=== PATIENT | male | born 1990 | race Caucasian/White ===

== ENCOUNTER 2016-12-14 17:48 | Emergency (ER) | payer BC ==
[2016-12-14 20:58] LABS: Urine Bacteria Absent (Absent); Urine Bilirubin Negative (Negative); Urine Glucose Negative (Negative); Urine Nitrite Negative (Negative)
--- NOTE | 2016-12-14 21:35 | ED ---
Complaint/Male - History of Current Complaint Chief Complaint: EDUrogenitalProblems Time Seen by Provider: 12/14/16 19:57 Hx Obtained From: Patient Onset/Duration: Gradual Onset Timing: Constant Severity Initially: Moderate Severity Currently: None Location: Suprapubic Character: Sharp Aggravating Factor(s): Voiding, Straining Alleviating Factor(s): Nothing Associated Signs And Symptoms: Back Pain - Risk Factors Testicular Torsion: Negative - Allergies/Home Medications Allergies/Adverse Reactions: Allergies Allergy/AdvReac Type Severity Reaction Status Date / Time No Known Allergies Allergy Verified 10/29/13 15:21 PMH/Surg Hx/FS Hx/Imm Hx Previously Healthy: Yes Musculoskeletal History: Denies: Hx Rheumatoid Arthritis, Hx Osteoporosis - Immunization History Hx Pertussis Vaccination: No Immunizations Up to Date: Yes Infectious Disease History: No Infectious Disease History: Denies: Traveled Outside the in Last 30 Days - Social History Occupation: Employed Full-time Lives: With Family Alcohol Use: Occasionally Hx Substance Use: No Substance Use Type: Reports: None Hx Tobacco Use: No Smoking Status (MU): Never Smoked Tobacco Do You Chew or Dip Tobacco: No Review Of Systems Constitutional: Positive: Negative Skin: Positive: Negative ENT: Positive: Negative Cardiovascular: Positive: Negative Gastrointestinal: Positive: Negative Musculoskeletal: Positive: Negative Neurological: Positive: Negative All Other Systems Reviewed And Are Negative: Yes Physical Exam Triage Information Reviewed: Yes Vital Signs On Initial Exam: Initial Vitals Temp Pulse Resp BP Pulse Ox 99.4 F 83 20 161/85 100 12/14/16 17:50 12/14/16 17:50 12/14/16 17:50 12/14/16 17:50 12/14/16 17:50 Vital Signs Reviewed: Yes Appearance: Positive: Well-Appearing, Well-Nourished Skin: Positive: Warm, Skin Color Reflects Adequate Perfusion Eyes: Positive: EOMI, DIMITRY, Conjunctiva Clear Neck: Positive: Supple, No Lymphadenopathy Respiratory/Lung Sounds: Positive: Clear to Auscultation, Breath Sounds Present Cardiovascular: Positive: Normal, RRR, Pulses are Symmetrical in both Upper and Lower Extremities Musculoskeletal: Positive: Normal, Strength/ROM Intact Neurological: Positive: Sensory/Motor Intact, Alert, Oriented to Person Place, Time, Speech Normal Psychiatric: Positive: Normal AVPU Assessment: Alert Diagnostics - Vital Signs Vital Signs Temp Pulse Resp BP Pulse Ox 12/14/16 19:19 99.1 F 94 15 170/78 100 12/14/16 17:54 97.9 F 96 16 161/85 100 12/14/16 17:50 99.4 F 83 20 161/85 100 - Laboratory Lab Results: Lab Results 12/14/16 Range/Units 20:25 Urine Color Yellow Urine Appearance Clear Urine pH 6.0 (5-9) Ur Specific [place] 1.014 (1.010-1.030) Urine Protein Negative (Negative) Urine Ketones Negative (Negative) Urine Blood 1+ H (Negative) Urine Nitrate Negative (Negative) Urine Bilirubin Negative (Negative) Urine Urobilinogen Negative (Negative) Ur Leukocyte Esterase Trace H (Negative) Urine WBC (Auto) Absent (Absent) Urine RBC (Auto) Trace(0-2/hpf) (Absent) Urine Bacteria Absent (Absent) Urine Glucose Negative (Negative) Lab Statement: Any lab studies that have been ordered have been reviewed, and results considered in the medical decision making process. Complaint Male Course/Dx - Course Course Of Treatment: He states he had pain on Wednesday at 10/10 with what seemed to be a blockage of urine, after severe pain, he felt a flowing stream and did not have any more pain. He also endorses flank pain on the right side. He denies previous hx of kidney stones. His mother states he drinks a lot of milk. Provider explained to patient and mother risks and benefits of CT scan as well as kidney stone pain. Also, what medications will help and why he may need an intervention at some point (stone size, location). It was explained that without pain currently, its likely he passed a stone but that imaging may not show us anything and he is to return if pain returns. He agrees and is OK for discharge. If symptoms persist or blockage of urine happens again, flomax was given as a prescription. - Differential Dx/Diagnosis Differential Diagnosis/HQI/PQRI: Pyelonephritis, Testicular Torsion, Ureteral Calculi Provider Diagnoses: kidney stone
[2016-12-14 22:00] VITALS: BP 133/75
== END 2016-12-14 21:59 | disposition home or self-care (01) ==
LOC: ED 17:48
DX: N20.0 Calculus of kidney (principal); M54.9 Dorsalgia, unspecified
CPT/HCPCS: 81003; 81015; 87086; 99282

== ENCOUNTER 2018-08-01 21:13 | Emergency (ER) | payer BC ==
--- NOTE | 2018-08-01 22:09 | ED ---
GI/ HPI - HPI Summary HPI Summary: Patient complains of decreased urinary flow, bilateral lower abdominal pressure , nausea, mild hematuria, starting 8 AM this morning. States history of same one time before with unconfirmed diagnosis of kidney stones. Patient states since prior episode 12/2016, flow has never been completely restored. Denies fever, cough, sore throat, CP, SOB, V/D, change in BM, penile discharge, testicular pain. Medical history is none. Abdominal surgical history is none. Sexually active. 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 Onset/Duration: Started Hours Ago Timing: Constant Severity: Moderate Current Severity: Moderate Pain Intensity: 8 Location of Pain: RLQ, LLQ, Suprapubic Pain Characteristics: Dull, Pressure Associated Signs and Symptoms: Positive: Nausea, Dysuria, Abdominal Pain - Allergy/Home Medications Allergies/Adverse Reactions: Allergies Allergy/AdvReac Type Severity Reaction Status Date / Time No Known Allergies Allergy Verified 08/01/18 21:27 PMH/Surg Hx/FS Hx/Imm Hx Endocrine/Hematology History: Denies: Hx Anticoagulant Therapy Cardiovascular History: Denies: Hx Cardiac Arrest History: Denies: Hx Dialysis Musculoskeletal History: Denies: Hx Rheumatoid Arthritis, Hx Osteoporosis EENT History: Denies: Hx Deafness Neurological History: Denies: Hx CVA Psychiatric History: Denies: Hx Autism Infectious Disease History: No Infectious Disease History: Denies: Traveled Outside the [place] in Last 30 Days - Family History Known Family History: Positive: Unknown - Social History Alcohol Use: Occasionally Hx Substance Use: No Substance Use Type: Reports: None Hx Tobacco Use: No Smoking Status (MU): Never Smoked Tobacco Review of Systems Constitutional: Negative Eyes: Negative ENT: Negative Cardiovascular: Negative Respiratory: Negative Positive: Abdominal Pain, Nausea Positive: dysuria, hematuria, pain Musculoskeletal: Negative Skin: Negative Neurological: Negative Psychological: Normal All Other Systems Reviewed And Are Negative: Yes Physical Exam - Summary Physical Exam Summary: Patient has feeling of pressure with palpation of lower abdomen bilaterally and suprapubically. Abdominal exam otherwise unremarkable. No CVA tenderness bilaterally. Triage Information Reviewed: Yes Vital Signs On Initial Exam: Initial Vitals Temp Pulse Resp BP Pulse Ox 98.7 F 86 16 156/99 99 08/01/18 21:20 08/01/18 21:20 08/01/18 21:20 08/01/18 21:20 08/01/18 21:20 Vital Signs Reviewed: Yes Appearance: Positive: Well-Appearing Skin: Positive: Warm Head/Face: Positive: Normal Head/Face Inspection Eyes: Positive: Normal Neck: Positive: Supple Respiratory/Lung Sounds: Positive: Clear to Auscultation Cardiovascular: Positive: Normal Abdomen Description: Positive: Nontender Musculoskeletal: Positive: Normal Neurological: Positive: Normal Psychiatric: Positive: Normal AVPU Assessment: Alert - Alvin Coma Scale Best Eye Response: 4 - Spontaneous Best Motor Response: 6 - Obeys Commands Best Verbal Response: 5 - Oriented Coma Scale Total: 15 Diagnostics - Vital Signs Vital Signs Temp Pulse Resp BP Pulse Ox 08/01/18 21:20 98.7 F 86 16 156/99 99 - Laboratory Result Diagrams: 08/01/18 22:49 Lab Statement: Any lab studies that have been ordered have been reviewed, and results considered in the medical decision making process. GIGU Course/Dx - Course Course Of Treatment: Patient complains of decreased urinary flow, bilateral lower abdominal pressure, nausea, mild hematuria, starting 8 AM this morning. States history of same one time before with unconfirmed diagnosis of kidney stones. Patient states since prior episode 12/2016, flow has never been completely restored. Denies fever, cough, sore throat, CP, SOB, V/D, change in BM, penile discharge, testicular pain. Medical history is none. Abdominal surgical history is none. Sexually active. Physical exam:Patient has feeling of pressure with palpation of lower abdomen bilaterally and suprapubically. Abdominal exam otherwise unremarkable. No CVA tenderness bilaterally. Vital signs within normal limits. Labs unremarkable. CT abdomen and pelvis without contrast negative for acute process. Patient went to the bathroom and urinated on his own, and states he feels completely better and back to baseline. Bladder scan postvoid shows no remaining urine in bladder. UA positive for UTI. - Diagnoses Provider Diagnoses: UTI (urinary tract infection) Discharge - Sign-Out/Discharge Documenting (check all that apply): Patient Departure - Discharge Plan Condition: Stable Disposition: HOME Patient Education Materials: Urinary Tract Infection in Men (ED) Referrals: No Primary Care Phys,NOPCP [Primary Care Provider] - Serge Mirza MD [Medical Doctor] - Additional Instructions: Take antibiotics as directed. Return to the ED for any new or worsening symptoms - Billing Disposition and Condition Condition: STABLE Disposition: Home
[2018-08-01 22:59] LABS: ABS Basophils 0 10^3/ul (0-0.2); ABS Eosinophils 0.1 10^3/ul (0-0.6); ABS Lymphocytes 2.3 10^3/ul (1.0-4.8); ABS Monocytes 0.5 10^3/ul (0-0.8); ABS Neutrophils 4.2 10^3/ul (1.5-7.7); ABS Nucleated RBC 0 10^3/ul; Hematocrit 43 % (42-52); Hemoglobin 14.9 g/dl (14.0-18.0); Lymphocyte % 31.9 %; Mean Corpuscular HGB Conc 35 g/dl (31-36); Mean Corpuscular Hemoglobin 30 pg (27-31); Mean Corpuscular Volume 85 fL (80-94); Mean Platelet Volume 8.1 fL (7.4-10.4); Nucleated Red Blood Cells % 0; Platelet Count 268 10^3/ul (150-450); Red Blood Count 5.03 10^6/ul (4.00-5.40); Red Cell Distribution Width 13 % (10.5-15); White Blood Count 7.1 10^3/ul (3.5-10.8)
[2018-08-01 23:13] LABS: Urine Appearance Cloudy; Urine Bacteria Absent (Absent); Urine Bilirubin Negative (Negative); Urine Blood 2+ (Negative); Urine Color Yellow; Urine Glucose Negative (Negative); Urine Ketones Negative (Negative); Urine Nitrite Negative (Negative); Urine Protein 1+(30 mg/dL) (Negative); Urine Red Blood Cell 3+(>10/hpf) (Absent); Urine Specific Gravity 1.031 (1.010-1.030); Urine Urobilinogen Negative (Negative); Urine White Blood Cell 3+(>20/hpf) (Absent)
[2018-08-01] MEDS ORDERED: Sulfamethox/Trimethoprim DS 800/160* TAB PO ONE ×2 (23:15→23:21)
[2018-08-01 23:18] LABS: ALT 25 U/L (7-52); AST 19 U/L (13-39); Albumin 4.4 g/dL (3.2-5.2); Albumin/Globulin Ratio 1.8 (1-3); Alkaline Phosphatase 87 U/L (34-104); Anion Gap 6 mmol/L (2-11); BUN/Creatinine Ratio 19.1 (8-20); Blood Urea Nitrogen 18 mg/dL (6-24); C Reactive Protein < 1.00 mg/L (<8.01); CO2 Carbon Dioxide 27 mmol/L (22-32); Calcium 9.2 mg/dL (8.6-10.3); Chloride 104 mmol/L (101-111); EGFR Non-African American 96.3 (>60); Globulin 2.5 g/dL (2-4); Glucose 96 mg/dL (70-100); Potassium 3.8 mmol/L (3.5-5.0); Sodium 137 mmol/L (135-145); Total Protein 6.9 g/dL (6.4-8.9)
[2018-08-01] MEDS ORDERED: Sulfamethox/Trimethoprim DS 800/160* TAB ONE (23:24)
[2018-08-01 23:27] VITALS: BP 135/65
== END 2018-08-01 23:26 | disposition home or self-care (01) ==
LOC: ED 21:13
DX: N39.0 Urinary tract infection, site not specified (principal); R31.9 Hematuria, unspecified; R11.0 Nausea
CPT/HCPCS: 36415; 74176; 80053; 81003; 81015; 83605; 83690; 85025; 86140; 87086; 99282; A9270-GY

== ENCOUNTER 2018-08-26 09:40 | Day surgery (SDC) | payer BC ==
--- NOTE | 2018-08-25 14:07 | HP ---
CC: Dr. Arturo Barrios HISTORY AND PHYSICAL: DATE OF PLANNED ADMISSION AND SURGERY: 08/26/18 HISTORY OF PRESENT ILLNESS: Mr. Mkceon is a 28-year-old white male, who is admitted with recurrent urinary tract infections, bladder outlet obstruction and tight urethral meatal stenosis for meatotomy and cystoscopy. For the last year, Gadiel had noted slow stream, hesitancy and spraying of his urinary stream. He also has been having episodes of urgency, frequency and burning on urination. He was diagnosed as having urinary tract infections and prostatitis and 6 months ago was treated with a course of antibiotics. He went to the emergency room on 08/01/18 complaining of recurrent bladder symptoms. He had a noncontrast CT of the abdomen and pelvis, which was normal. At that time, his urine culture was negative. He was treated as a case of prostatitis. He had recurrent symptoms and was seen by Dr. Barrios 1 week ago. He had a work- up with blood work, and his CBC, chemistry profile, and urinalysis were all normal. He again was thought to have prostatitis and was placed on a course of Bactrim, which the patient is still taking. The patient presented to my office for evaluation. He has been having nocturia 4 times, day frequency every hour. He reports having slow stream and feels incomplete bladder emptying. No gross hematuria. On physical examination in the office, he was noted to have a very tight meatal stenosis. I could not dilate the stenosis in the office due to its severity and to the associated pain. Past history is otherwise negative. No past history of renal diseases or voiding symptoms. PAST MEDICAL HISTORY AND SYSTEM REVIEW: He had hernia repair in childhood. He had ruptured right Achilles tendon that required surgical repair in 2010. He is otherwise in excellent health. MEDICATIONS: He is on no chronic medications. ALLERGIES: He denies any allergies to medications. FAMILY HISTORY: Negative. SOCIAL HISTORY: He works as a toure. He drinks about 1 beer a day. PHYSICAL EXAMINATION GENERAL: He is a pleasant, healthy and well-built young man. VITAL SIGNS: Blood pressure 120/70, pulse of 86. LUNGS: Normal. HEART: Normal. ABDOMEN: Normal. EXTERNAL GENITALIA: He is circumcised. There is a very tight meatal stenosis. Testes feel normal without any masses. No inguinal hernias noted. DIAGNOSTIC STUDIES/LAB DATA: Urinalysis is negative. Postvoid bladder ultrasound in the office showed a residual of 60 cc. IMPRESSION: Tight meatal stenosis with bladder outlet obstruction, incomplete bladder emptying, and recurrent episodes of urinary tract infections and prostatitis, treated with Bactrim. PLAN: Plan is for meatotomy, and for cystoscopy to rule out any other urethral or bladder pathologies I discussed the above plans with the patient and his girlfriend and all their questions were answered. The patient was told that he might need to perform routine self meatal dilations in the future to decrease the risk of recurrence of the meatal stenosis. [id number]/CPS #: [id number] ABEL
[2018-08-26] MEDS ORDERED: Sodium Citrate/Citric Acid* 15 ML UDC ONE (09:59)
[2018-08-26] MEDS ORDERED: cefTRIAXone(*) 1 GM ADVAN/BAG ONE (09:59)
[2018-08-26] MEDS ORDERED: Metoclopramide IV* 5 MG/ML 2 ML VIAL ONE (10:19)
[2018-08-26] MEDS ORDERED: Naloxone* 0.4 MG/ML 1 ML VIAL IV PRN (11:44)
[2018-08-26] MEDS ORDERED: Ondansetron INJ* 2 MG/ML VIAL IV PRN (11:44)
[2018-08-26] MEDS ORDERED: Ketorolac INJ* 30 MG/ML 1 ML VIAL IV PRN (11:44)
[2018-08-26] MEDS ORDERED: Midazolam* 1 MG/ML 2 ML VIAL (2 MG) ONE (11:47)
[2018-08-26] MEDS ORDERED: fentaNYL* 50 MCG/ML 2 ML VIAL (100 MCG VIAL) ONE ×2 (11:47→13:32)
[2018-08-26] MEDS ORDERED: Lidocaine 2% PF * 5 ML VIAL ONE (11:48)
[2018-08-26] MEDS ORDERED: Propofol* 10 MG/ML 20 ML BTL ONE (11:48)
[2018-08-26] MEDS ORDERED: Lidocaine 1% INJ* 10 MG/ML 30 ML SDV ONE (11:51)
[2018-08-26] MEDS ORDERED: Bupivacaine 0.5%* 50 ML VIAL ONE (11:51)
[2018-08-26] MEDS ORDERED: Lidocaine 2% JELLY* 20 ML (for OR use) ONE (11:51)
[2018-08-26] MEDS ORDERED: Bacitracin OINTMENT* 0.5% 0.5 oz TUBE ONE (11:51)
[2018-08-26] MEDS ORDERED: Lidocaine 2% JELLY* 6 ML JELLY TOPICAL ONE ×2 (12:51→13:19)
[2018-08-26] MEDS ORDERED: Ondansetron INJ* 2 MG/ML VIAL ONE (13:30)
[2018-08-26] MEDS: fentaNYL* 50 MCG/ML 2 ML VIAL (100 MCG VIAL) IV PRN ×2 (13:33→13:55)
[2018-08-26 14:40] VITALS: BP 111/52
--- NOTE | 2018-09-02 00:21 | OP ---
CC: Dr. Arturo Barrios * DATE OF OPERATION: 08/26/18 - [facility] DATE OF : 89 SURGEON: Dk Jones MD ANESTHESIOLOGIST: Dr. Yaya Falk. ANESTHESIA: General. PRE-OP DIAGNOSES: 1. Meatal stenosis. 2. Partial urinary retention due to above. POST-OP DIAGNOSES: 1. Meatal stenosis. 2. Partial urinary retention due to above. OPERATIVE PROCEDURE: 1. Meatoplasty. 2. Cystoscopy. INDICATION FOR PROCEDURE: Mr. Mckeon is a 28-year-old white male who was referred by Dr. Barrios because of recurrent episodes of urinary tract infections , slow stream, incomplete bladder emptying, who was noted on office examination to have a very tight meatal stenosis. Because of that finding, the patient was admitted for the above procedure. PATHOLOGY: Exam under anesthesia showed circumcised male with a very tight meatal stenosis with a pinpoint opening. The stenosis extended into the fossa navicularis. Following the dilatation of the distal urethra, cystoscopy showed normal penile and bulbar urethra without any strictures. The prostatic urethra was short and open. Examination of the bladder showed an elevated postvoid residual. There was moderate degree of bladder trabeculations. The urethral orifices looked normal. There were no suspicious bladder lesions seen. No calculi or diverticula were noted. DESCRIPTION OF PROCEDURE: After successful general anesthesia, the patient was placed in the lithotomy position and was prepped and draped for cystoscopy. Using a mosquito clamp, the opening of the meatus was identified and was gently probed and dilated. A ventral and dorsal meatotomy was then performed. The incisions were extended inside the fossa navicularis, dividing the scar tissue and allowing the introduction of a 17[place] cystoscope. The cystoscopy was then performed. The whole urethra was inspected. The bladder was entered and inspected and the above findings were noted. The cystoscope was then removed. Additional dorsal and ventral incisions of the fossa navicularis was carried. Care was taken not to create a ventral incision of the meatus to avoid an iatrogenic hypospadias. Using 4-0 chromic sutures, the mucosa of the distal urethra was approximated to the edges of the incised meatus maintaining the patency of the meatus and fossa navicularis. Good hemostasis was achieved. A size 16[place] Ledezma catheter was then placed with minimal resistance at the meatus. The balloon was inflated with 10 cc of water. The patient tolerated the procedure well and left the operating room in good condition. The plan is to discharge the patient home with Ledezma catheter for the next 3 days. He will be seen in the office afterwards for catheter removal. The patient will be instructed to perform self-dilation of the meatus with a red rubber catheter to avoid recurrence of the stenosis. [id number] #: [id number] MTDD
== END 2018-08-26 14:07 | disposition home or self-care (01) ==
LOC: OR 09:40
PROVIDERS: ATTEND Urology
DX: N35.811 Other urethral stricture, male, meatal (principal); Z87.440 Personal history of urinary (tract) infections
CPT/HCPCS: A9270-GY; J0696; J2250; J2405; J2704; J2765; J3010